=== PATIENT | male | born 1950 | race Caucasian/White ===

== ENCOUNTER 2019-01-17 08:03 | Emergency (ER) | payer OTHER, MEDICARE ==
[2019-01-17] MEDS ORDERED: NORMAL SALINE 1000 ML 1,000 ML IV ONE (10:14)
--- NOTE | 2019-01-17 10:19 | ER Document Report ---
ED Medical Screen (RME) - General Chief Complaint: Weakness Stated Complaint: POSSIBLE ALLERGIC REACTION Time Seen by Provider: 01/17/19 09:55 Information source: Patient Notes: Patient presents stating he has had a week and a half of difficulty walking. Patient states that he has pain and weakness to bilateral lower extremities. Patient states that he had a similar episode 7 years ago after receiving a flu vaccination. Patient states that he initially had been evaluated for possible Guillain-[place] but was told that he did not have that. Patient states that he did receive a flu vaccination as it was a requirement of continued employment. Patient received the vaccination of 4 weeks ago. Patient states that he has had difficulty ambulating. Patient states that because of the difficulty ambulating he is altered how he does things and then he developed back pain. Patient states that he used heat or hang up and was able to pop his back so that his back pain improved. Patient denies any fever. Patient states that he feels as though he is dehydrated and he needs some fluids. Patient is concerned that he has rhabdomyolysis. I have greeted and performed a rapid initial assessment of this patient. A comprehensive ED assessment and evaluation of the patient, analysis of test results and completion of the medical decision making process will be conducted by additional ED providers. TRAVEL OUTSIDE OF THE [place] IN LAST 30 DAYS: No - Related Data Allergies/Adverse Reactions: aspartame Allergy (Unknown, Verified 10/06/15 07:41) Brings on Guillian [place] symptons formaldehyde Allergy (Unknown, Verified 10/06/15 07:41) Brings on Guillian [place] symptoms Influenza Virus Vaccines Allergy (Unknown, Verified 10/06/15 07:41) Brings on Guillian [place] symptoms Home Medications: Tramadol. Celebrex. Metformin. Singulair Past Medical History - Social History Chew tobacco use (# tins/day): No Frequency of alcohol use: Rare Drug Abuse: None - Past Medical History Cardiac Medical History: Denies: Hx Coronary Artery Disease, Hx Heart Attack, Hx Hypertension Pulmonary Medical History: Denies: Hx Asthma, Hx Bronchitis, Hx COPD, Hx Pneumonia Neurological Medical History: Denies: Hx Cerebrovascular Accident, Hx Seizures Musculoskeltal Medical History: Denies Hx Arthritis - Immunizations Hx Diphtheria, Pertussis, Tetanus Vaccination: Yes Physical Exam - Vital signs Vitals: Temp Pulse Resp BP Pulse Ox 97.8 F 91 20 176/88 H 99 01/17/19 08:09 01/17/19 08:09 01/17/19 08:09 01/17/19 08:09 01/17/19 08:09 - General General appearance: Appears well, Alert Notes: Decreased strength to bilateral lower extremities, patient able to hold leg off the stretcher against gravity for about 3 seconds and then extremity falls to stretcher Course - Vital Signs Vital signs: Temp Pulse Resp BP Pulse Ox 97.8 F 91 20 176/88 H 99 01/17/19 08:19 01/17/19 08:09 01/17/19 08:19 01/17/19 08:09 01/17/19 08:19
[2019-01-17 10:39] LABS: APPEARANCE,URINE CLEAR; BILIRUBIN,URINE NEGATIVE (NEGATIVE); COLOR,URINE YELLOW; GLUCOSE, URINE NEGATIVE (NEGATIVE); KETONES,URINE NEGATIVE (NEGATIVE); LEUKOCYTE ESTERASE,URINE NEGATIVE (NEGATIVE); NITRITE,URINE NEGATIVE (NEGATIVE); PROTEIN,URINE NEGATIVE (NEGATIVE); URINE SPECIFIC GRAVITY 1.014; UROBILINOGEN,URINE NEGATIVE mg/dL (<2.0)
[2019-01-17 11:15] LABS: ABSOLUTE BASOPHILS # (AUTO) 0.1 10^3/uL (0.0-0.2); ABSOLUTE EOSINOPHILS # (AUTO) 0.1 10^3/uL (0.0-0.6); ABSOLUTE LYMPHOCYTES (AUTO) 1.8 10^3/uL (0.5-4.7); ABSOLUTE MONOCYTES (AUTO) 0.6 10^3/uL (0.1-1.4); ABSOLUTE NEUT (AUTO) 5.1 10^3/uL (1.7-8.2); BASOPHILS % (AUTO) 0.9 % (0-2); EOSINOPHILS % (AUTO) 1.6 % (0-6); HEMATOCRIT 42.1 % (37.9-51.0); HEMOGLOBIN 14.6 g/dL (13.5-17.0); LYMPHOCYTES % (AUTO) 23.5 % (13-45); MEAN CORPUSCULAR HEMOGLOBIN 27.6 pg (27.0-33.4); MEAN CORPUSCULAR HGB CONC 34.7 g/dL (32.0-36.0); MEAN CORPUSCULAR VOLUME 80 fl (80-97); MONOCYTES % (AUTO) 8.3 % (3-13); PLATELET COUNT 251 10^3/uL (150-450); RED BLOOD COUNT 5.29 10^6/uL (4.35-5.55); RED CELL DISTRIBUTION WIDTH 13.9 % (11.5-14.0); SEGMENTED NEUTROPHILS % (AUTO) 65.7 % (42-78); TOTAL CELLS COUNTED % (AUTO) 100 %; WHITE BLOOD COUNT 7.8 10^3/uL (4.0-10.5)
[2019-01-17 11:31] LABS: ALBUMIN 4.6 g/dL (3.5-5.0); ALKALINE PHOSPHATASE 88 U/L (38-126); ANION GAP 12 (5-19); ASPARTATE AMINO TRANSFERASE 26 U/L (17-59); BILIRUBIN,DIRECT 0.1 mg/dL (0.0-0.4); BILIRUBIN,TOTAL 0.7 mg/dL (0.2-1.3); BLOOD UREA NITROGEN 19 mg/dL (7-20); CALCIUM 10.5 mg/dL (8.4-10.2); CARBON DIOXIDE 25 mmol/L (22-30); CHLORIDE 104 mmol/L (98-107); CREATINE KINASE 46 U/L (55-170); GLUCOSE 114 mg/dL (75-110); POTASSIUM 4.2 mmol/L (3.6-5.0); TOTAL PROTEIN 7.8 g/dL (6.3-8.2)
--- NOTE | 2019-01-17 14:53 | ER Document Report ---
ED General - General Chief Complaint: Weakness Stated Complaint: POSSIBLE ALLERGIC REACTION Time Seen by Provider: 01/17/19 09:55 Primary Care Provider: LOUISE CAMPBELL MD [Primary Care Provider] - Follow up as needed TRAVEL OUTSIDE OF THE [place] IN LAST 30 DAYS: No - Related Data Allergies/Adverse Reactions: aspartame Allergy (Unknown, Verified 10/06/15 07:41) Brings on Guillian [place] symptons formaldehyde Allergy (Unknown, Verified 10/06/15 07:41) Brings on Guillian [place] symptoms Influenza Virus Vaccines Allergy (Unknown, Verified 10/06/15 07:41) Brings on Guillian [place] symptoms Home Medications: Tramadol. Celebrex. Metformin. Singulair Past Medical History - General Information source: Patient - Social History Smoking Status: Never Smoker Chew tobacco use (# tins/day): No Frequency of alcohol use: Rare Drug Abuse: None Family History: Reviewed & Not Pertinent Patient has suicidal ideation: No Patient has homicidal ideation: No - Past Medical History Cardiac Medical History: Reports: Hx Hypertension Denies: Hx Coronary Artery Disease, Hx Heart Attack Pulmonary Medical History: Denies: Hx Asthma, Hx Bronchitis, Hx COPD, Hx Pneumonia Neurological Medical History: Denies: Hx Cerebrovascular Accident, Hx Seizures Musculoskeletal Medical History: Denies Hx Arthritis Past Surgical History: Reports: Hx Orthopedic Surgery - L knee - Immunizations Hx Diphtheria, Pertussis, Tetanus Vaccination: Yes Review of Systems - Review of Systems Notes: Review of systems pertinent positives and negatives in HPI otherwise all the systems were reviewed and acutely negative Physical Exam - Vital signs Vitals: Temp Pulse Resp BP Pulse Ox 97.8 F 91 20 176/88 H 99 01/17/19 08:09 01/17/19 08:09 01/17/19 08:09 01/17/19 08:09 01/17/19 08:09 - Notes Notes: Patient is a 68-year-old white male to the [employer] complaining of weakness in the back of his legs going on for the past 2 weeks also has some numbness in his legs he says he is having difficulty ambulating and needs to hold onto things. He has has had no numbness in his rectal area no loss of bowel bladder function and no numbness or weakness in the upper extremities , he is concerned that he may have [place] syndrome because he had a flu shot about 1 month ago. he had a flu shot in 2011 and about 2 weeks afterward started having the same type of weakness in his legs that gradually resolved. He saw his family doctor who did not diagnose him with Luly [place] again did not diagnosed with Luly [place] he reports that not had a flu shot since then. He denies having any preceding illness prior to getting the flu shot. Denies any headaches URI symptoms chest pain shortness of breath fevers cough nausea vomiting or abdominal pain. Does report appetite is been decreased for about a week and feels that he may be dehydrated by any dysuria rashes or joint pain Patient does report that he had an episode of back pain 2 weeks ago after the leg weakness. At the time he was carrying some packages and twisted developed pain. He went home and uses invertor there and felt a pop in his back and the back pain resolved continues to have the pain in his lower back Past medical history significant for diabetes and diet-controlled hypertension is no coronary disease. Social history smoker quit denies any alcohol,M does r eport occasional flareups in his back and is seeing a chiropractor for this but has never really had lower extremity weakness Family history is noncontributory PHYSICIAN EXAM -vital signs are noted triage note and note from triage reviewed GENERAL: Well-appearing, well-nourished and in no acute distress HEAD: Atraumatic, normocephalic. EYES: Pupils equal round and reactive to light, extraocular movements intact, sclera anicteric, conjunctiva are normal. ENT: nares patent, oropharynx clear without exudates. SLightly dry mucous membranes. NECK: supple without lymphadenopathy LUNGS: Breath sounds clear to auscultation bilaterally and equal. No wheezes rales or rhonchi. HEART: Regular rate and rhythm without murmurs ABDOMEN: Soft, nontender, normoactive bowel sounds. EXTREMITIES: No deformity, no edema. NEUROLOGICAL: Alert and oriented x4. Cranial nerves he has symmetrical smile facies and shoulder shrug. His motor strength is 5/5 bilaterally in the upper and lower extremities. Toes downgoing. Sensation is intact to light touch and pinprick in lower extremities and though he reports of numbness in his feet is a negative Romberg, patellar and Achilles reflexes are intact he has very brisk plantar refle PSYCH: Normal mood, normal affect. SKIN: Warm, Dry, normal turgor, no rashes or lesions noted. BACK-nontender in the midline Differential diagnose includes dehydration electrolyte abnormality lumbar radiculopathy Course - Vital Signs Vital signs: Temp Pulse Resp BP Pulse Ox 97.6 F 75 16 140/83 H 97 01/17/19 18:08 01/17/19 18:08 01/17/19 18:08 01/17/19 18:08 01/17/19 18:08 - Laboratory Result Diagrams: 01/17/19 10:41 01/17/19 10:41 Laboratory results interpreted by me: 01/17/19 10:41 Glucose 114 H Calcium 10.5 H Creatine Kinase 46 L Discharge - Discharge Clinical Impression: Degenerative disc disease, lumbar, Lumbar radiculopathy Condition: Good Disposition: HOME, SELF-CARE Additional Instructions: Radiculopathy Radiculopathy is irritation of a nerve. Sometimes this is called "pinched nerve." The pain can be sharp and stabbing, constant and dull, or burning in nature. The pain can occur in any area of the chest, shoulders, or arms. Sometimes the pain is provoked by coughing or moving. Radiculopathy can be caused by physical pressure on a nerve, such as a herniated disc or swollen joint in the spine. It can also be caused by viral infections within the nerve or by nerve damage due to diabetes or blood vessel disease. Radicular pain is treated with antiinflammatory medicine. Injections may help resistant cases, if we can identify a single nerve that's causing the pain. Surgery is usually not necessary. If symptoms do not improve with time, you may need additional testing, such as an MRI or EMG (electromyogram). Return if there is local weakness or numbness, shortness of breath, increasing pain, or other new symptoms. Low Back Pain Three out of every four people will have an episode of disabling back pain during their lifetime. Most commonly the pain is due to straining of the muscles and ligaments in the low back. Usual treatment includes: (1) Rest on a firm surface. Avoid lying on your stomach. (2) Ice pack the painful area. After a few days, gentle heat may be used intermittently to relax the area, or ice packs can be continued. (3) Medication may be needed -- muscle relaxers and antiinflammatory medicines are commonly used. (4) As the back improves, exercises are prescribed to strengthen the back and abdominal muscles. Your doctor will advise you on the proper care for your back at each stage in your recovery. You may be better in a few days -- or healing may take several weeks. If new symptoms of a "herniated disc" (radiation of pain, numbness, or tingling down the back of the leg or weakness in the leg) occur, you should be re-examined. Further testing may be necessary. Please review the discharge instructions, they will tell you about your disease/injury and what you need to return to the ED for Return to the ED if you feel worse or can follow-up with your family doctor Stop the Celebrex while taking prednisone Rest You can take Tylenol for pain Use the walker to ambulate Follow-up with your family doctor on Sunday we can schedule you for an MRI Your blood pressure was elevated today needs to be rechecked again in 1 to 2 weeks to determine if need to be on medication or have your medications adjusted. Untreated hypertension can cause heart attack stroke and kidney failure Prescriptions: Prednisone [Deltasone] 20 mg PO TID #15 tablet Walker [Folding Walker] 1 each MC ASDIR PRN #1 each PRN Reason: Forms: Elevated Blood Pressure Referrals: LOUISE CAMPBELL MD [Primary Care Provider] - Follow up as needed
--- NOTE | 2019-01-17 15:29 | RADIOLOGY REPORT (SQ) ---
EXAM DESCRIPTION: CT LUMBAR SPINE WITHOUT COMPLETED DATE/TIME: 01/17/2019 3:13 pm REASON FOR STUDY: Back pain COMPARISON: None. TECHNIQUE: Axial images acquired through the lumbar spine without intravenous contrast. Images revi ewed with lung, soft tissue and bone windows. Reconstructed coronal and sagittal MPR images reviewe d. All images stored on PACS. All CT scanners at this facility use dose modulation, iterative reconstruction, and/or weight based d osing when appropriate to reduce radiation dose to as low as reasonably achievable (ALARA). [facility]: Dose Right [facility]: CareDose [facility]: Dose Right [facility]: Teradose 4D [facility]: light RADIATION DOSE: mGy. LIMITATIONS: None. FINDINGS: SEGMENTATION: Normal. No transitional anatomy. ALIGNMENT: There is scoliosis with concavity toward the right. VERTEBRAL BODIES: No fractures. No dislocation. No acute findings. DISCS: There is disc space narrowing at L3-L4-L5-S1 with vacuum phenomena present at both of these le vels. L1-L2: There is broad-based annular disc bulging. There is facet arthropathy. Mild narrowing of bot h neural foramina. L2-L3: Mild annular disc bulging along with facet hypertrophy. Mild asymmetric narrowing of the righ t neural foramina. L3-L4: Marked disc space narrowing. Bilateral facet arthropathy right greater than left. There is a nnular disc bulging. Moderate central stenosis and bilateral foraminal stenosis. L4-L5: Broad-based annular disc bulging. Bilateral facet arthropathy. There is moderate central parish nosis and bilateral foraminal stenosis. L5-S1: Disc space narrowing. There is annular disc bulging and bilateral foraminal narrowing. PEDICLES, TRANSVERSE PROCESSES: No fractures. No dislocation. No acute findings. FACETS, POSTERIOR ELEMENTS: No fractures. No dislocation. No spinal stenosis. HARDWARE: None in the spine. VISUALIZED RIBS: No fractures. SOFT TISSUES: No significant or acute finding in adjacent soft tissues. OTHER: No other significant finding. IMPRESSION: 1. Multilevel spondylosis as described. 2. Mild bilateral foraminal narrowing at L1-L2. 3. Annular disc bulging at L2-L3 along with facet arthropathy. This results in asymmetric narrowing of the right neural foramina. 4. Disc space narrowing at L3-L4 with annular disc bulging. This results in moderate central stenos is. There is bilateral facet arthropathy and bilateral foraminal stenosis. 5. Broad-based annular disc bulging at L4-L5 with facet arthropathy. This results in moderate centr al stenosis and bilateral foraminal stenosis. 6. Disc space narrowing at L5-S1 with bilateral foraminal narrowing. TECHNICAL DOCUMENTATION: JOB ID: [id number] Quality ID # [id number]: Final reports with documentation of one or more dose reduction techniques (e.g., Au tomated exposure control, adjustment of the mA and/or kV according to patient size, use of iterative reconstruction technique) 2010 [employer]- All Rights Reserved Reading location - IP/workstation name: [email or web address]
[2019-01-17 17:47] VITALS: BP 140/83
--- NOTE | 2019-01-17 21:35 | EKG REPORT ---
SEVERITY:- ABNORMAL ECG - SINUS RHYTHM VENTRICULAR PREMATURE COMPLEX RIGHT BUNDLE BRANCH BLOCK PROBABLE INFERIOR INFARCT, AGE INDETERMINATE : Confirmed by: Nikko Johnson MD 17-Jan-2019 21:34:56
== END 2019-01-17 18:00 | disposition home or self-care (01) ==
LOC: ER 08:03
DX: M51.16 Intervertebral disc disorders with radiculopathy, lumbar region (principal); R53.1 Weakness; R20.0 Anesthesia of skin; I10 Essential (primary) hypertension
CPT/HCPCS: 93005; 99283; 96360; 96361; 36415; 82550; 85025; 80053; 81001; 72131; 93010; J7030

== ENCOUNTER → 2019-02-20 | Outpatient (CLI) | payer MEDICARE ==
--- NOTE | 2019-02-21 10:41 | RADIOLOGY REPORT (SQ) ---
EXAM DESCRIPTION: MRI LUMBAR SPINE WITHOUT COMPLETED DATE/TIME: 02/20/2019 7:40 pm REASON FOR STUDY: (M47.26)OTHER SPONDYLOSIS WITH RADICULOPATHY, LUMBAR REGION M47.26 OTHER SPONDYLO SIS WITH RADICULOPATHY, LUMBAR REGION COMPARISON: CT of the lumbar spine without contrast from 01/17/2019. TECHNIQUE: Sagittal and Axial imaging includes T1, T2, STIR and gradient echo sequences. Coronal T2/ HASTE imaging. LIMITATIONS: None. FINDINGS: VISUALIZED UPPER ABDOMEN: Limited evaluation. SEGMENTATION: There are 5 lumbar-type vertebral bodies. There is no transition anatomy at the lumbos acral junction. ALIGNMENT: Levoconvex scoliotic curvature of the lumbar spine with grade 1 anterolisthesis of L3 rela tive to L4. VERTEBRAE: There is a Schmorl's node at the superior endplate of the L4 vertebral body. The lumbar v ertebral body heights are otherwise preserved. There is no fracture. BONE MARROW: There is no pathologic marrow signal abnormality. DISC SIGNAL: The L3-L4, L4-5, and L5-S1 intervertebral disc spaces are narrowed; at L3-L4 and L5-S1 t here is vacuum disc phenomenon. POSTERIOR ELEMENTS: Intact. HARDWARE: None in the spine. CORD AND CONUS: The conus medullaris terminates at the level of L1-L2 and it is normal in caliber and signal intensity. SOFT TISSUES: Parapelvic renal cysts. L1-L2: Broad-based disc bulge that encroaches on the inferior aspect of the neuroforamina, hypertroph y of the ligamentum flavum, and osteoarthrosis of the facet joints. In combination these findings re sult in moderate right and mild left foraminal stenosis. L2-L3: Broad-based disc bulge eccentric to the left that encroaches on the inferior aspect of the sherrell roforamina and osteoarthrosis of the facet joints. In combinations these findings result in moderate right and mild left foraminal stenosis. L3-L4: Grade 1 anterolisthesis of L3 relative to L4 with unroofing of the intervertebral disc on the right within the neuroforamen, broad-based disc protrusion eccentric to the left that encroaches on t he inferior aspect of the neuroforamina, indents the ventral aspect of the thecal sac and on the righ t abuts the L3 nerve root, hypertrophy of the ligamentum flavum, and osteoarthrosis of the facet join ts. The combination of these findings results in mild to moderate compression of the thecal sac and moderate to severe right and mild to moderate left foraminal stenosis. L4-L5: Broad-based disc protrusion eccentric to the right that abuts the right intraforaminal L4 nerv e root, hypertrophy of the ligamentum flavum with partial effacement of the dorsal epidural fat and d egeneration of the facet joints. The combination these findings results in moderate bilateral forami nal stenosis, moderate compression of the thecal sac and probable compression of the left L5 nerve ro ot at the level of the lateral recess. L5-S1: Broad-based disc bulge that encroaches on the inferior aspect of the neuroforamina and abuts t he left L5 nerve root and degeneration of the set joints. In combination these findings results and mild right and moderate to severe left foraminal stenosis. LOWER THORACIC: No stenosis. UPPER SACRUM: Intact. OTHER: No other findings. IMPRESSION: Advanced degenerative spondylosis and facet arthropathy of the lumbar spine most severe at L3-L4 and L4-L5 as detailed above. TECHNICAL DOCUMENTATION: JOB ID: [id number] [employer]- All Rights Reserved Reading location - IP/workstation name: [email or web address]
--- NOTE | 2019-02-21 18:04 | RADIOLOGY REPORT (SQ) ---
EXAM DESCRIPTION: MRI PELVIS WITHOUT COMPLETED DATE/TIME: 02/20/2019 7:40 pm REASON FOR STUDY: (M47.26)OTHER SPONDYLOSIS WITH RADICULOPATHY, LUMBAR REGION M47.26 OTHER SPONDYLO SIS WITH RADICULOPATHY, LUMBAR REGION COMPARISON: None. TECHNIQUE: Multiplanar multisequence imaging without and with contrast including axial, sagittal and coronal fat sat T2, axial and coronal T1, axial and coronal T1 post contrast. CONTRAST TYPE AND DOSE: mL RENAL FUNCTION: Not indicated. ACR Type II contrast agent associated with few, if any, unconfounded cases of NSF LIMITATIONS: None. FINDINGS: PROSTATE: Normal zonal anatomy and signal. No focal nodules or masses. SEMINAL VESICLES: Normal. PELVIS: No masses. No adenopathy. BLADDER: Normal. PELVIS SKELETAL STRUCTURES: No abnormal marrow signal. EXTRA PELVIC SOFT TISSUES: No masses. OTHER: No other significant finding. IMPRESSION: No acute findings. TECHNICAL DOCUMENTATION: JOB ID: [id number] [email or web address]- All Rights Reserved Reading location - IP/workstation name: [email or web address]
== END ==
LOC: RAD 02-15 11:03
PROVIDERS: ATTEND Internal Medicine
DX: M47.26 Other spondylosis with radiculopathy, lumbar region (principal); M51.16 Intervertebral disc disorders with radiculopathy, lumbar region; M60.80 Other myositis, unspecified site
CPT/HCPCS: 72148; 72195

== ENCOUNTER 2019-03-19 08:05 | Day surgery (SDC) | payer MEDICARE ==
[2019-03-19 09:11] LABS: INTERNATIONAL RATION (INR) 0.94; PROTHROMBIN TIME 12.6 SEC (11.4-15.4)
[2019-03-19 09:12] LABS: PARTIAL THROMBOPLASTIN TIME 27.6 SEC (23.5-35.8)
[2019-03-19 12:06] LABS: GLUCOSE,CSF 62 mg/dL (40-70); PROTEIN,CSF 85 mg/dL (12-60)
--- NOTE | 2019-03-19 12:24 | RADIOLOGY REPORT (SQ) ---
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 FLUOROSCOPY TIME: 1 minutes of fluoroscopy was used. Fluoroscopic images were not saved to pac's TECHNIQUE: Fluoroscopic guided lumbar puncture. LIMITATIONS: None. PROCEDURE: After written consent and assessment were obtained, the patient was brought into the fluo roscopy room and placed prone on the table. The patient's lower back was prepped in a sterile fashio n and an entry site was selected under live fluoroscopic guidance. The entry site was anesthetized wi th 1% lidocaine. A 20 gauge needle was advanced through the skin and into the thecal sac at the level of L4-L5 by was unsuccessful. A 2nd attempt at the L3- L4 level was successful. After approximatel y 13 ml was drained, the needle was removed and a sterile bandage was placed of the site. Specimens were sent to the lab for testing. A fluoroscopic spot image was saved to PACS confirming level acces s. FINDINGS: Clear CSF IMPRESSION: Lumbar puncture under fluoroscopy. No immediate complication. COMMENT: Patient medication list reviewed: Yes- Quality ID# [id number]:Eligible professional attests to doc umenting in the medical record they obtained, updated, or reviewed the patient's current medications. . Quality ID 145: Final reports for procedures using fluoroscopy that document radiation exposure deanne tamy, or exposure time and number of fluorographic images (if radiation exposure indices are not avail able) TECHNICAL DOCUMENTATION: JOB ID: [id number] 2010 [employer]- All Rights Reserved Reading location - IP/workstation name: [email or web address]
[2019-03-19 12:51] LABS: APPEARANCE ALL TUBES CLEAR; COLOR ALL TUBES COLORLESS; CSF TOTAL VOLUME 12.2 CC; CSF TUBE NUMBER 3; VOLUME TUBE 1 2.5 CC; VOLUME TUBE 3 2.2 CC; VOLUME TUBE 4 4.5 CC
[2019-03-19 12:53] LABS: RED BLOOD CELL,CSF 112 /uL (0-10)
[2019-03-19 12:56] LABS: WHITE BLOOD CELL,CSF 1 /uL (0-5)
[2019-03-19] MEDS ORDERED: DEXTROSE 5%-1/2 NORMAL SALINE 1,000 ML IV PRN (13:23)
[2019-03-19 13:41] VITALS: BP 139/78
[2019-03-21 15:36] LABS: ALBUMIN CSF 38 mg/dL (11-48); CSF IGG INDEX 0.5 (0.0-0.7); IGG/ALBUMIN RATIO CSF 0.11 (0.00-0.25); IMMUNOGLOBULIN G 1025 mg/dL (700-1600); IMMUNOGLOBULIN G CSF 4.3 mg/dL (0.0-8.6)
[2019-03-22 13:49] LABS: ALBUMIN SERUM 4.8 g/dL (3.8-4.8); CSF/SERUM ALBUMIN INDEX 8 (0-8)
[2019-03-25 13:37] LABS: LYME P18 AB IGG CSF Absent (.); LYME P23 AB IGG CSF Absent (.); LYME P23 AB IGM CSF Absent (.); LYME P28 AB IGG CSF Absent (.); LYME P39 AB IGM CSF Absent (.); LYME P41 AB IGG CSF Absent (.); LYME P41 AB IGM CSF Absent (.); LYME P58 AB IGG CSF Absent (.); LYME P66 AB IGG CSF Absent (.); LYME P93 AB IGG CSF Absent (.)
[2019-03-26 07:11] LABS: LYME IGG WB CSF INTERP Negative (.); LYME IGM WB CSF INTERP Negative (.)
== END 2019-03-19 13:30 | disposition home or self-care (01) ==
LOC: RAD 08:05
PROVIDERS: ATTEND Psychiatry & Neurology Neurology
DX: G61.0 Guillain-Barre syndrome (principal); Z79.01 Long term (current) use of anticoagulants; E11.9 Type 2 diabetes mellitus without complications; I10 Essential (primary) hypertension
CPT/HCPCS: 36415; 62328; 82040; 82042; 82784; 82945; 82962; 83916; 84157; 85610; 85730; 86617; 87015; 87070; 87101; 87116; 87205; 87206; 89050